=== PATIENT | female | born 2000 | race Caucasian/White ===

== ENCOUNTER 2022-02-17 11:22 | Observation (INO) ==
[2022-02-17 12:32] LABS: Basophils % 0.2 %; Eosinophils % 0.1 %; Hematocrit 33.5 % (35.3-44.9); Hemoglobin 10.6 g/dL (11.5-15.4); Immature Granulocytes % 0.7 % (0-4); Lymphocytes # 1.3 K/mcL (0.6-4.6); Lymphocytes % 14.3 %; Mean Corpuscular HGB Conc 31.6 g/dL (31.6-35.5); Mean Corpuscular Hemoglobin 25.5 pg (28.0-33.3); Mean Corpuscular Volume 80.7 fL (83.0-100.0); Mean Platelet Volume 12.1 fL (9.4-12.4); Monocytes # 0.6 K/mcL (0.0-1.3); Monocytes % 6.5 %; Neutrophils # 7.2 K/mcL (1.6-8.9); Platelet Count 300 K/mcL (140-400); Red Blood Count 4.15 M/mcL (3.82-4.97); Red Cell Distribution Width 14.6 % (11.5-14.5); Segmented Neutrophils % 78.2 %; White Blood Count 9.2 K/mcL (4.3-11.1)
[2022-02-17 12:41] LABS: Protein/Creatinine Ratio,Urine 0.23 mg/mg (0.00-0.20)
[2022-02-17 12:45] LABS: Bacteria,Urine Few per hpf (None-Few); Bilirubin,Urine Negative (Negative); Blood,Urine Large (Negative); Clarity,Urine Turbid (Clear); Color,Urine Light-Orange (Yellow); Glucose,Urine (UA) Normal (Normal); Ketones,Urine 60 mg/dL (Negative); Leukocyte Esterase,Urine Moderate (Negative); Mucus,Urine Moderate per lpf (None-Few); Nitrite,Urine Negative (Negative); Protein,Urine 70 mg/dL (Neg-Trace); RBC,Urine 50-100 per hpf (0-3); Specific Gravity,Urine > 1.030 (1.010-1.025); Squamous Epithelial Cell,Urine Moderate per hpf (None-Few); Transitional Epi Cells,Urine Few per hpf (None-Few)
[2022-02-17 12:51] LABS: Alanine Aminotransferase 39 Units/L (7-52); Aspartate Amino Transferase 24 Units/L (13-39); BUN/Creatinine Ratio 17 (6-26); Blood Urea Nitrogen 9 mg/dL (6-20); Lactate Dehydrogenase 138 Units/L (140-271); Uric Acid 4.7 mg/dL (2.3-7.6); eGFR For African Americans > 60; eGFR For Non-African Americans > 60
== END 2022-02-17 14:40 | disposition home or self-care (01) ==
LOC: 1NENULAB
PROVIDERS: ADMIT Obstetrics & Gynecology; ATTEND Obstetrics & Gynecology

== ENCOUNTER 2022-02-18 11:16 | Inpatient (IN) ==
[2022-02-18 12:07] LABS: Basophils % 0.3 %; Eosinophils % 0.1 %; Hematocrit 33.2 % (35.3-44.9); Hemoglobin 10.6 g/dL (11.5-15.4); Immature Granulocytes % 0.7 % (0-4); Lymphocytes # 1.5 K/mcL (0.6-4.6); Lymphocytes % 16.2 %; Mean Corpuscular HGB Conc 31.9 g/dL (31.6-35.5); Mean Corpuscular Hemoglobin 25.7 pg (28.0-33.3); Mean Corpuscular Volume 80.4 fL (83.0-100.0); Monocytes # 0.7 K/mcL (0.0-1.3); Monocytes % 7.6 %; Neutrophils # 6.7 K/mcL (1.6-8.9); Platelet Count 301 K/mcL (140-400); Red Blood Count 4.13 M/mcL (3.82-4.97); Red Cell Distribution Width 14.6 % (11.5-14.5); Segmented Neutrophils % 75.1 %; White Blood Count 8.9 K/mcL (4.3-11.1)
[2022-02-18 12:23] LABS: Creatinine,Urine 50 mg/dL
[2022-02-18 12:26] LABS: Alanine Aminotransferase 41 Units/L (7-52); Aspartate Amino Transferase 23 Units/L (13-39); BUN/Creatinine Ratio 18 (6-26); Blood Urea Nitrogen 9 mg/dL (6-20); Lactate Dehydrogenase 133 Units/L (140-271); Uric Acid 4.6 mg/dL (2.3-7.6); eGFR For African Americans > 60; eGFR For Non-African Americans > 60
[2022-02-18] MEDS ORDERED: EPHEDrine 50 MG/ML VIAL IVP PRN (13:08)
[2022-02-18] MEDS ORDERED: Lidocaine -MPF 2% 2 ML VIAL ONE (13:23)
[2022-02-18] MEDS ORDERED: Famotidine 20 MG/2 ML VIAL IVP PRN (13:47)
[2022-02-18] MEDS ORDERED: *HR* Nalbuphine 10 MG/ML AMPUL IV PRN (13:47)
[2022-02-18] MEDS ORDERED: miSOPROStoL 25 MCG TABLET PO PRN (13:47)
[2022-02-18] MEDS ORDERED: Metoclopramide 10 MG/2 ML VIAL IVP PRN (13:47)
[2022-02-18] MEDS ORDERED: Naloxone 0.4 MG/ML INJ IVP PRN (13:47)
[2022-02-18] MEDS ORDERED: Ondansetron 4 MG/2 ML VIAL IVP PRN (13:47)
[2022-02-18] MEDS ORDERED: Oxytocin 30 UNIT/503 ML BAG IVC SCH (14:00)
[2022-02-18] MEDS: Ringers Solution, Lactated 1,000 ML IVC SCH ×2 (14:42→20:58)
[2022-02-18 14:44] LABS: Influenza A PCR Negative (Negative); Influenza B PCR Negative (Negative); Resp. Syncytial Virus PCR Negative (Negative)
[2022-02-18 15:22] LABS: Amphetamine Screen,Urine Negative ng/mL (Cutoff=1000); Barbiturate Screen,Urine Negative ng/mL (Cutoff=200); Benzodiazepines Screen,Urine Negative ng/mL (Cutoff=200); Cannabinoid Screen,Urine Positive ng/mL (Cutoff = 50); Cocaine Screen,Urine Negative ng/mL (Cutoff= 300); Opiate Screen,Urine Negative ng/mL (Cutoff=300); Phencyclidine Screen,Urine Negative ng/mL (Cutoff=25)
[2022-02-18] MEDS: Epidural Premix (fent/bupiv) 110 ML EP SCH ×2 (15:22→20:30)
[2022-02-18 15:38] LABS: SARS-CoV-2 by PCR (In House) Negative (Negative)
[2022-02-18] MEDS ORDERED: Bupivacaine-MPF 0.25% 10 ML VIAL ONE (21:24)
[2022-02-19] MEDS ORDERED: *HR* Ropivacaine/PF 0.5% 20 ML VIAL ONE (02:40)
[2022-02-19] MEDS ORDERED: Ropivacaine/PF 0.2% 20 ML VIAL ONE (02:41)
[2022-02-19] MEDS ORDERED: Benzocaine/Menthol 56 GM AEROSOL SPRAY TP PRN (03:39)
[2022-02-19] MEDS ORDERED: OXYTOCIN/RINGERS LACTATE 10 UNIT/166.6 ML BAG IVC ONE (03:39)
[2022-02-19] MEDS ORDERED: Measles/Mumps/Rubella Vacc 0.5 ML VIAL SQ PRN (03:39)
[2022-02-19] MEDS ORDERED: Ondansetron ODT 4 MG TAB.RAPDIS SL PRN (03:39)
[2022-02-19] MEDS ORDERED: Rho Immune Globulin 1,500 UNIT SYRINGE IM PRN (03:39)
[2022-02-19] MEDS: Lanolin 7 G OINT...G. TP PRN ×2 (03:52→10:31)
[2022-02-19] MEDS: Ibuprofen 600 MG TABLET PO SCH ×3 (03:52→20:15)
[2022-02-19] MEDS: Prenatal Vit/FA 1 EACH TABLET PO SCH (08:46)
[2022-02-19] MEDS ORDERED: Prenatal Vit/FA 1 EACH TABLET PO SCH (09:00)
[2022-02-19 10:22] LABS: Basophils % 0.2 %; Hematocrit 29.1 % (35.3-44.9); Hemoglobin 9.2 g/dL (11.5-15.4); Immature Granulocytes % 0.6 % (0-4); Lymphocytes # 1.3 K/mcL (0.6-4.6); Lymphocytes % 7.7 %; Mean Corpuscular HGB Conc 31.6 g/dL (31.6-35.5); Mean Corpuscular Hemoglobin 25.7 pg (28.0-33.3); Mean Corpuscular Volume 81.3 fL (83.0-100.0); Mean Platelet Volume 12.3 fL (9.4-12.4); Monocytes % 6.2 %; Platelet Count 259 K/mcL (140-400); Red Blood Count 3.58 M/mcL (3.82-4.97); Red Cell Distribution Width 14.6 % (11.5-14.5); Segmented Neutrophils % 85.3 %
[2022-02-19 10:23] LABS: White Blood Count 16.4 K/mcL (4.3-11.1)
[2022-02-19] MEDS: Acetaminophen 325 MG TABLET PO SCH ×2 (10:31→20:15)
[2022-02-20] MEDS: Acetaminophen 325 MG TABLET PO SCH ×3 (04:10→09:15)
[2022-02-20] MEDS: Ibuprofen 600 MG TABLET PO SCH ×3 (04:11→09:15)
[2022-02-20] MEDS: Prenatal Vit/FA 1 EACH TABLET PO SCH (08:54)
[2022-02-20 10:29] VITALS: BP 131/89; PULSE 108; TEMP 98.1; O2SAT 96
== END 2022-02-20 12:28 | disposition home or self-care (01) | DRG 560 ==
LOC: 1NENULAB → 1NENUOBS 02-19 02:45
PROVIDERS: ADMIT Student in an Organized Health Care Education/Training Program; ATTEND Student in an Organized Health Care Education/Training Program